=== PATIENT | male | born 1980 | race Caucasian/White ===

== ENCOUNTER 2018-10-02 02:57 | Emergency (ER) | payer OTHER ==
[~2018-10-02] VITALS: Ht 180.3 cm; Wt 88.5 kg
[~2018-10-02 02:57] MED LIST: CLONAZEPAM 1 MG1 M1 PO; IBUPROFEN 800800 M1 PO; NORCO 5-325 TA1 EACH PO
[2018-10-02] MEDS ORDERED: FLONASE 0.05%50 MCG NASAL (03:33)
[2018-10-02] MEDS ORDERED: AZITHROMYCIN 2250 MG PO (03:33)
[2018-10-02] MEDS ORDERED: MUCINEX DM ER1 EACH PO (03:33)
[2018-10-02 04:30] VITALS: BP 139/86
== END 2018-10-02 04:30 | disposition home or self-care (01) ==
LOC: ER 02:57
DX: H66.92 Otitis media, unspecified, left ear (principal); J06.9 Acute upper respiratory infection, unspecified; F41.9 Anxiety disorder, unspecified; Z88.0 Allergy status to penicillin

== ENCOUNTER 2020-09-09 | Emergency (ER) | payer OTHER ==
[~2020-09-09] VITALS: Ht 180.3 cm; Wt 107.5 kg
[~2020-09-09] MED LIST changes: +AZITHROMYCIN 2250 MG PO; +FLONASE 0.05%50 MCG NASAL; +MUCINEX DM ER1 EACH PO
[2020-09-09] MEDS ORDERED: FLEXERIL PO (00:09)
[2020-09-09 02:48] VITALS: BP 133/90
== END 2020-09-09 02:49 | disposition home or self-care (01) ==
LOC: ER
DX: M54.5 Low back pain (principal); Z79.899 Other long term (current) drug therapy; Z88.0 Allergy status to penicillin